=== PATIENT | female | born 1960 | race Hispanic/Latino ===

== ENCOUNTER → 2017-11-18 | Outpatient (CLI) | payer OTHER | END | disposition home or self-care (01) | LOC: RAH 09:33 | PROVIDERS: ATTEND Family Medicine | DX: Z12.31 Encounter for screening mammogram for malignant neoplasm of breast (principal) | CPT/HCPCS: 77067 ==

== ENCOUNTER → 2020-11-07 | Outpatient (CLI) | payer BC, OTHER | END | disposition home or self-care (01) | LOC: RAH 15:32 | PROVIDERS: ATTEND Family Medicine | DX: Z12.31 Encounter for screening mammogram for malignant neoplasm of breast (principal) | CPT/HCPCS: 77067 ==

== ENCOUNTER 2021-04-02 07:28 | Emergency (ER) | payer BC ==
[~2021-04-02] VITALS: Ht 154.9 cm; Wt 63.5 kg
[2021-04-02 07:32] VITALS: BP 181/84
[2021-04-02] MEDS ORDERED: TRAMADOL HCL 50 MG TABLET PO SCH (08:00)
[2021-04-02] MEDS ORDERED: TRAMADOL HCL 50 MG TABLET ONE (08:02)
[2021-04-02] MEDS ORDERED: PRED20TA3 PO (08:03)
[2021-04-02] MEDS ORDERED: IBUP-2077 PO (08:03)
[2021-04-02] MEDS ORDERED: CYCL10TA16 PO (08:03)
== END 2021-04-02 08:11 | disposition home or self-care (01) ==
LOC: EDH 07:28
DX: M54.41 Lumbago with sciatica, right side (principal); Z79.52 Long term (current) use of systemic steroids; Z79.1 Long term (current) use of non-steroidal anti-inflammatories (NSAID)

== ENCOUNTER → 2021-11-07 | Outpatient (CLI) | payer BC ==
[~2021-11-07] MED LIST: CYCL10TA16 PO; IBUP-2077 PO; PRED20TA3 PO
== END | disposition home or self-care (01) ==
LOC: RAH 08:44
PROVIDERS: ATTEND Family Medicine
DX: Z12.31 Encounter for screening mammogram for malignant neoplasm of breast (principal)
CPT/HCPCS: 77067

== ENCOUNTER → 2022-10-30 | Outpatient (CLI) | payer BC, OTHER | END | disposition home or self-care (01) | LOC: RAH 07:38 | PROVIDERS: ATTEND Family Medicine | DX: N64.4 Mastodynia (principal) | CPT/HCPCS: 77066 ==

== ENCOUNTER → 2023-11-02 | Outpatient (CLI) | payer BC | END | disposition home or self-care (01) | LOC: RAH 08:22 | PROVIDERS: ATTEND Nurse Practitioner Family | DX: Z12.31 Encounter for screening mammogram for malignant neoplasm of breast (principal); R92.343 Mammographic extreme density, bilateral breasts | CPT/HCPCS: 77067 ==

== ENCOUNTER 2024-05-15 14:28 | Emergency (ER) | payer BC ==
[~2024-05-15] VITALS: Ht 154.9 cm; Wt 67.1 kg
[2024-05-15] MEDS: ketOROlac 15MG/ML VIAL (15MG/ML) IM STA (15:45)
[2024-05-15] MEDS: acetaMINOPHEN 500 MG TABLET PO STA (15:45)
--- NOTE | 2024-05-15 17:40 | HMCIMG ---
SHOULDER COMP 2+VWS RT CLINICAL HISTORY: RIB PAIN COMPARISON: None TECHNIQUE: 2 images were obtained. FINDINGS: No obvious fracture or dislocation. No joint effusion. The soft tissues appear unremarkable. No radiopaque foreign bodies. IMPRESSION: No acute findings.
--- NOTE | 2024-05-15 18:11 | ERN ---
ED Note History of Present Illness Stated Complaint: RT ARM PAIN Chief Complaint: Upper Extremity Pain/Injury Time Seen by MD: 14:39 Time Seen by Midlevel: 14:44 Dictation: 63-year-old female coming in complaining of right upper extremity pain and right rib pain. Denies any trauma, however states yesterday she was helping a family member move some a water bottle creates the pain began shortly after that. Patient states she has a history of osteoporosis. No other complaints at this time. Denies any shortness a breath, chest pain, nausea, vomiting no diarrhea. Allergies: Coded Allergies: No Known Drug Allergies (Unverified Allergy, 05/06/13) Home Meds Active Scripts Ibuprofen (Ibuprofen 800 mg Tab) 800 Mg Tab, 800 MG PO Q6H PRN for PAIN LEVEL 5 TO 10 for 7 Days, #30 TAB Prov:SHYANN MCNEAL MD 04/02/21 Prednisone (Prednisone) 20 Mg Tablet, 2 TAB PO AD for 5 Days, #14 TAB 0 Refills TAKE 1 TAB BY MOUTH THREE TIMES PER DAY X3 DAYS, THEN TAKE 1 TAB BY MOUTH TWICE A DAY X2 DAYS, THEN TAKE 1 TAB BY MOUTH ONCE A DAY X1 DAY. Prov:SHYANN MCNEAL MD 04/02/21 Cyclobenzaprine HCl (Flexeril) 10 Mg Tab, 10 MG PO TID PRN for PAIN LEVEL 1 TO 5 for 5 Days, #15 TAB Prov:SHYANN MCNEAL MD 04/02/21 Past Medical History Past Medical History: Hypertension Additional Past Medical Hx: OSTEOPOROSIS Surgical History: Other Surgical History Other: KNEE SURGERY, HERNIA REPAIR Social History: Other Review of System Dictation Constitutional: Negative for fever,chills, and weight loss Eyes: Negative for injury, pain,redness, and discharge ENT: Negative for injury,pain or swelling Cardiovascular: Negative for chest pain, palpitations, and edema Respiratory: Negative for shortness of breath, cough, and wheezing, Abdomen/GI: Negative for abdominal pain, nausea, vomiting, diarrhea, and constipation Back: Negative for injury and pain : Negative for injury, bleeding and discharge MS/Extremity: Negative for injury and deformity complaining of right upper shoulder pain Skin: Negative for rash, and discoloration Neuro: Negative for headache, weakness, numbness, tingling, and seizure Psych: Negative for suicide ideation, homicidal ideation, and hallucinations Review of Systems: was completed Initial Vital Sign VS Vital Signs Date Time Temp Pulse Resp B/P (MAP) Pulse Ox O2 Delivery O2 Flow Rate FiO2 05/15/24 14:29 98.1 80 14 163/93 96 Room Air 0 05/15/24 16:56 21 Physical Exam Dictation General: awake, alert, NAD Head/Face: Normocephalic, atraumatic Eyes: PERRL, EOMI, vision at baseline ENT: oral cavity clear, TMs clear, no signs of infection Neck: Trachea midline, supple, no nuchal rigidity Cardiovascular: RRR, normal S1/S2, No MRGs, no JVD Respiratory: CTAB, no respiratory distress, No rales or wheezes Abdomen: Soft, non-tender, non-distended, normal bowel sounds, no guarding or rebound. Skin: Warm, dry, normal turgor, no rash MS/Extremity: Pulses equal, no cyanosis, neurovascular intact, FROM right shoulder pain right rib pain Neuro: COAx4, GCS 15, strength 5/5, CN 2-12 intact, normal cerebellar exam, normal gait, Psych: Normal behavior, mood, and affect normal Results (Laboratory/Radiology) Laboratory/Radiology Laboratory Tests Test 05/15/24 17:04 Troponin I High Sensitivity < 4 ng/L (4-50) L EKG Comment: Date:1200 Time:1700 Ventricular rate:66 MO interval:154 QRS duration:-16 QT/QTc:420/440 EKG interpretation: Sinus rhythm, in for your infarct, old. Probable anteroseptal infarct, old Reviewed by ED Attending and no STEMI interpreted by ER MD X-RAY Comment: [address] [address] IMAGING REPORT Signed PATIENT: SHAYY KITCHEN MR#: [id number] : 1960 SEX: F AGE: 63 LOCATION: [facility] ORDER 1540 STATUS: REG ER [facility] REPORT#: [id number] SERVICE [id number] REASON: RIB PAIN ORDERING PHYSICIAN: HERO JACOBS NP PROCEDURE: SHOL 2V RT - SHOULDER COMP 2+VWS RT SHOULDER COMP 2+VWS RT CLINICAL HISTORY: RIB PAIN COMPARISON: None TECHNIQUE: 2 images were obtained. FINDINGS: No obvious fracture or dislocation. No joint effusion. The soft tissues appear unremarkable. No radiopaque foreign bodies. IMPRESSION: No acute findings. DICTATED BY: NURYS CHARLES DO DATE: 05/15/24 1733 ELECTRONICALLY SIGNED BY: NURYS CHARLES DO DATE: 05/15/24 1740 ED Course ED Course Orders Procedure Category Date Status Time Ketorolac PHA 05/15/24 Complete Tromethamine 15mg/Ml 15:37 Acetaminophen 500mg PHA 05/15/24 Complete Tab (Tylenol 500mg T 15:37 Ribs Unilat 2v Rt RAD 05/15/24 Taken 15:39 Shoulder Comp 2+Vws Rt RAD 05/15/24 Resulted 15:39 12 Lead Ekg Tracing- EKG 05/15/24 Complete Technical 16:52 Troponin I High LAB 05/15/24 Complete Sensitivity 16:52 Chest 1vw RAD 05/15/24 Taken 16:52 Current Medications Medications (Trade) Dose Ordered Sig/Latia Route PRN Reason Start Time Stop Time Status Last Admin Dose Admin Acetaminophen (TYLenol 500MG TAB) 500 mg ONCE STAT PO 05/15/24 15:37 05/15/24 15:38 DC 05/15/24 15:45 Ketorolac Tromethamine (toRADol) 15 mg ONCE STAT IM 05/15/24 15:37 05/15/24 15:38 DC 05/15/24 15:45 Vital Signs Date Time Temp Pulse Resp B/P (MAP) Pulse Ox O2 Delivery O2 Flow Rate FiO2 05/15/24 18:29 98.8 69 18 157/71 98 Room Air* 0 21 05/15/24 16:56 98.8 64 20 164/73 98 Room Air* 0 21 05/15/24 14:29 98.1 80 14 163/93 96 Room Air 0 Medical Decision Making MDM MDM: 63-year-old female coming in complaining of right upper extremity pain and right rib pain. Denies any trauma, however states yesterday she was helping a family member move some a water bottle creates the pain began shortly after that. Patient states she has a history of osteoporosis. No other complaints at this time. Denies any shortness a breath, chest pain, nausea, vomiting no diarrhea. Patient's since the for him and a heart attack states that her mother date of a heart attack. Requesting imaging and EKG. EKG shows no STEMI, troponin is negative. X-ray of the right shoulder, chest, in ribs showed no acute findings, interpreted by me. After pain medication patient states she feels better. Educated patient more than like she she has a muscle strain from lifting the boxes. Educated to follow up with the PCP in 1-2 days and to take Tylenol [id number] for pain management along with the naproxen that I will prescribe. Patient verbalized understanding, answered all questions. Differential diagnosis: Shoulder dislocation, shoulder contusion, muscle strain Rationale: Tests considered and ordered secondary to shared decision making include: Previous outside records reviewed: Old ER visits. Risk of complication and/or morbidity or mortality of patient management: None Medications-Per medication reconciliation Need for hospitalization: Patient does not meet criteria for hospitalization. Need for emergency major/minor surgery: No There are no social concerns with this patient. Prescription drug management Prescriptions will include symptomatic care Patient's prior external medical records from other ER visits were reviewed by me as indicated. Prior testing and results from previous visits were reviewed. Prior tests were taken into account with medical decision making and resource utilization, independent historian/historians were used to obtain complete medical history. I independently interpreted the test that were performed, results were reviewed by me and considered findings on radiology if ordered. Medical management and examination interpretation discussions were had by me with other qualified healthcare professionals as indicated for the patient's care. DX & DISP Disposition: Transfer Departure Impression: Primary Impression: Rib pain on right side Additional Impression: Right shoulder pain Condition: Stable Scripts Naproxen (Naprosyn) 500 Mg Tablet 500 MG PO BIDPC for 3 Days, #6 TAB 0 Refills Prov: HERO JACOBS NP 05/15/24 Additional Instructions: You can add Tylenol to your pain regimen if needed alongside your naproxen. Follow up with your PCP in 1-2 days, return to the ER if symptoms worsen. Referrals: AMNA DE LEON (PCP) Time of Disposition: 18:43 I have reviewed the case, and I agree with, Diagnosis and Plan HERO JACOBS NP May 15, 2024 18:11
--- NOTE | 2024-05-15 18:28 | EKG ---
[facility] Test Date: 2024-05-15 Test Time: 17:00:36 Pat Name: SHAYY KITCHEN Department: ED Room: Gender: F Database Admin: [id number] : 1960 Requested By: HERO JACOBS Order Number: [id number] Reading MD: Mari Manning Measurements Intervals [place] Rate: 66 P: 6 CT: 154 QRS: -16 QRSD: 79 T: 29 QT: 420 QTc: 440 Interpretive Statements Sinus rhythm Inferior infarct, old Probable anteroseptal infarct, old No previous ECG available for comparison Electronically Signed On 05-16-2024 01:25:56 HISTORICAL ARCHEOLOGIST by Mari Manning Please click the below link to view image of tracing.
[2024-05-15 18:29] VITALS: BP 157/71; PULSE 69; RESP 18; TEMP 98.8; O2SAT 98
[2024-05-15] MEDS ORDERED: NAPR-1180 PO (18:43)
--- NOTE | 2024-05-15 19:29 | HMCIMG ---
CHEST 1VW CLINICAL HISTORY: CARDIAC COMPARISON: None TECHNIQUE: Single view of the chest was obtained. FINDINGS: Lungs are clear. The cardiac size and mediastinum are unremarkable. The bony structures are within normal limits. IMPRESSION: No acute cardiopulmonary process identified.
--- NOTE | 2024-05-15 19:52 | HMCIMG ---
RIBS UNILAT 2V RT CLINICAL HISTORY: RIB PAIN COMPARISON: None TECHNIQUE: 4 images were obtained. FINDINGS: The right lung is clear. There is no identified pneumothorax. The right ribs shoulder and clavicle as well as visualized portion of the spine appear intact IMPRESSION: There are no acute findings
== END 2024-05-15 19:05 | disposition home or self-care (01) ==
LOC: EDH 14:28
DX: M25.511 Pain in right shoulder (principal); R07.81 Pleurodynia; I10 Essential (primary) hypertension; Z98.890 Other specified postprocedural states
CPT/HCPCS: 99284; 71045; 84484; 71100; 73030; 96372; 93005; J1885

== ENCOUNTER 2024-12-21 14:16 | Emergency (ER) | payer BC ==
[~2024-12-21] VITALS: Ht 154.9 cm; Wt 67.6 kg
[~2024-12-21 14:16] MED LIST changes: +NAPR-1180 PO
[2024-12-21 15:09] VITALS: BP 157/77; PULSE 66; RESP 20; TEMP 97.9; O2SAT 99
[2024-12-21] MEDS: ORPHENADRINE 60MG/2ML IM ONE (15:18)
[2024-12-21] MEDS ORDERED: NAPR-1194 PO (15:50)
[2024-12-21] MEDS ORDERED: METH-662 PO (15:50)
--- NOTE | 2024-12-21 15:50 | ERN ---
General Chief Complaint: Low Back Pain/Injury Stated Complaint: LOWER BACK PAIN RADIATING DOWN LEG Time Seen by MD: 14:16 Source: patient History of Present Illness Initial Comments PATIENT IS A 64-YEAR-OLD FEMALE COMING IN COMPLAINING OF RIGHT LOWER LEG PAIN. PER PATIENT SHE WAS CARRYING AN OBJECT COUPLE OF DAYS AGO STARTED HAVING THE PAIN SHE DOES NOT HAS A RIGHT GLUTEAL REGION DOWN HER LEG. HE IS ABLE TO AMBULATE WITH SOME DISCOMFORT. Allergies: Coded Allergies: No Known Drug Allergies (Unverified Allergy, 05/06/13) Home Meds Active Scripts Naproxen (Naprosyn) 500 Mg Tablet, 500 MG PO BIDPC for 3 Days, #6 TAB 0 Refills Prov:HERO JACOBS NP 05/15/24 Ibuprofen (Ibuprofen 800 mg Tab) 800 Mg Tab, 800 MG PO Q6H PRN for PAIN LEVEL 5 TO 10 for 7 Days, #30 TAB Prov:SHYANN MCNEAL MD 04/02/21 Prednisone (Prednisone) 20 Mg Tablet, 2 TAB PO AD for 5 Days, #14 TAB 0 Refills TAKE 1 TAB BY MOUTH THREE TIMES PER DAY X3 DAYS, THEN TAKE 1 TAB BY MOUTH TWICE A DAY X2 DAYS, THEN TAKE 1 TAB BY MOUTH ONCE A DAY X1 DAY. Prov:SHYANN MCNEAL MD 04/02/21 Cyclobenzaprine HCl (Flexeril) 10 Mg Tab, 10 MG PO TID PRN for PAIN LEVEL 1 TO 5 for 5 Days, #15 TAB Prov:SHYANN MCNEAL MD 04/02/21 Past Medical History Past Medical History: Hypertension Medical History Other: OSTEOPOROSIS Past Surgical History: Other Surgical History Other: KNEE SURGERY, HERNIA REPAIR Social History Social History: Other ROS Dictation CONSTITUTIONAL: NO CHILLS, NO FEVER, NO WEAKNESS, NO DIAPHORESIS, NO MALAISE. HEAD/FACE: NO SIGNS OF TRAUMA. EENT: NO EYE PAIN, NO BLURRED VISION, NO TEARING, NO DOUBLE VISION, NO EAR PAIN, NO EAR DISCHARGE, NO NOSE PAIN, NO NASAL CONGESTION, NO THROAT PAIN, NO THROAT SWELLING, NO MOUTH PAIN. RESPIRATORY: NO COUGH, NO ORTHOPNEA, NO SOB, NO STRIDOR, NO WHEEZING. CARDIOVASCULAR: NO CHEST PAIN, NO EDEMA, NO PALPITATIONS, NO SYNCOPE. GASTROINTESTINAL/ABDOMINAL: NO ABDOMINAL PAIN, NO CONSTIPATION, NO DIARRHEA, NO NAUSEA, NO VOMITING. GENITOURINARY: NO ABNORMAL DISCHARGE, NO DYSURIA, NO FREQUENT URINATION, NO HEMATURIA. NO COMPLAINTS OF PAIN IN THE GENITALS. MUSCULOSKELETAL: NO BACK PAIN, NO GOUT, NO JOINT PAIN, NO JOINT SWELLING,MUSCLE PAIN, MUSCLE STIFFNESS, NO NECK PAIN. INTEGUMENTARY: NO CHANGE IN COLOR, NO CHANGE IN HAIR/NAILS, NO DRYNESS, NO LESION, NO LUMPS, NO RASH. NEUROLOGICAL/PSYCH: NO ANXIETY, NOT DEPRESSED, NO EMOTIONAL PROBLEM, NO HEADACHE, NO NUMBNESS, NO PRE-EXISTING DEFICIT, NO HISTORY OF SEIZURES, NO TREMORS, NO WEAKNESS. HEMATOLOGIC/LYMPHATIC: NOT ANEMIC, NO HISTORY OF BLOOD CLOTS, NO APPARENT BLEEDING, NO BRUISING, GLANDS NOT SWOLLEN. ALL SYSTEMS NEGATIVE, EXCEPT NOTED. Physical Exam Physical Exam Dictation VITAL SIGNS: REVIEWED. GENERAL APPEARANCE: ALERT, ORIENTED X3, NO ACUTE DISTRESS, OBESE. HEAD AND FACE: NON-TRAUMATIC. EYES: PERRL, PINK CONJUNCTIVAS, EYELID NO TRAUMA, ANTERIOR CHAMBER CLEAR. EARS: PINNAS INTACT AND NO SIGNS OF TRAUMA OR ERYTHEMA. EAR CANALS CLEAR AND NO DISCHARGE. TMS NO ERYTHEMA. NOSE: NO DISCHARGE, NO BLEEDING. OROPHARYNX: MOUTH NORMAL, TEETH NO CARIES, TONGUE PINK. PHARYNX CLEAR, NO ERYTHEMA. TONSILS NO EXUDATES, NO ABSCESSES NOTED. MUCOUS MEMBRANE MOIST. NECK: SUPPLE, NON-TENDER, NO THYROMEGALY, NO MASSES, NO JVD, NO BRUITS. BREAST: DEFERRED. CHEST: NO TENDERNESS, NO CREPITUS, NO PARADOXICAL MOVEMENT, NO RETRACTIONS. LUNGS: CLEAR, WELL-VENTILATED, SYMMETRIC, NO RALES, NO WHEEZING, NO RHONCHI, NO STRIDOR, GOOD BREATH SOUNDS BILATERALLY. HEART: REGULAR RATE, REGULAR RHYTHM, NO MURMUR, NO GALLOPS. VASCULAR: NO PERIPHERAL EDEMA. ABDOMEN: SOFT, POSITIVE BOWEL SOUNDS, NONDISTENDED, NO GUARDING, NONTENDER, NO REBOUND, NO MASSES NO HEPATOMEGALY, NO SPLENOMEGALY, NO FRANKS'S SIGN, NO HERNIAS. RECTAL: DEFERRED. GENITAL: DEFERRED. NEUROLOGICAL: NORMAL SPEECH, GROSS MOTOR FUNCTION INTACT, GROSS SENSORY FUNCTION INTACT. MUSCULOSKELETAL: NECK NONTENDER, FULL RANGE OF MOTION, BACK NONTENDER, FULL RANGE OF MOTION. EXTREMITIES: NONTENDER, FULL RANGE OF MOTION. RIGHT GLUTEAL REGION TENDERNESS RATE DOWN THE RIGHT HAMSTRING AREA SKIN: COLOR PINK, DRY, NO TURGOR, NO RASH, NO LACERATIONS, NO ABRASIONS, NO CONTUSIONS. LYMPHATICS: DEFERRED. MDM MDM: DIFFERENTIAL DIAGNOSIS: RIGHT-SIDED SCIATICA, MUSCLE STRAIN, RATIONALE: TESTS CONSIDERED AND ORDERED SECONDARY TO SHARED DECISION MAKING INCLUDE: PREVIOUS OUTSIDE RECORDS REVIEWED: OLD ER VISITS. RISK OF COMPLICATION AND/OR MORBIDITY OR MORTALITY OF PATIENT MANAGEMENT: NONE MEDICATIONS-PER MEDICATION RECONCILIATION NEED FOR HOSPITALIZATION: PATIENT DOES NOT MEET CRITERIA FOR HOSPITALIZATION. PATIENT IS A 64-YEAR-OLD FEMALE COMING IN COMPLAINING OF RIGHT LOWER EXTREMITY PAIN RADIATING TO THE GLUTEAL REGION. ON PHYSICAL EXAM THAT HAS TENDERNESS IN THE GLUTEAL REGION. PATIENT WILL BE DISCHARGED WITH A DIAGNOSIS OF RIGHT-SIDED SCIATICA. WOULD TREAT HER CONSERVATIVELY WITH THE ANTISPASMODICS AND ANTI-INFLAMMATORIES. I DID ADVISED HER APPROPRIATE FOLLOW UP WITH PCP FOR ONGOING EVALUATION AND MANAGEMENT. ED Course Orders Procedure Category Date Status Time Orphenadrine Citrate PHA 12/21/24 Complete (Norflex) 15:00 Ketorolac PHA 12/21/24 Complete Tromethamine 30mg/Ml 15:00 Current Medications Medications (Trade) Dose Ordered Sig/Latia Route PRN Reason Start Time Stop Time Status Last Admin Dose Admin Ketorolac Tromethamine (toRADol) 30 mg ONCE ONCE IM 12/21/24 15:00 12/21/24 15:01 DC 12/21/24 15:18 Orphenadrine Citrate (Norflex) 60 mg ONCE ONCE IM 12/21/24 15:00 12/21/24 15:01 DC 12/21/24 15:18 Vital Signs Date Time Temp Pulse Resp B/P (MAP) Pulse Ox O2 Delivery O2 Flow Rate FiO2 12/21/24 15:09 97.9 66 20 157/77 99 Room Air* 0 21 12/21/24 14:29 97.9 66 20 157/77 99 Room Air DX & DISP Disposition: Discharge Departure Impression: Primary Impression: Sciatic leg pain Condition: Stable Scripts Naproxen (Naproxen) 500 Mg Tablet 1 TAB PO BID for pain for 7 Days, #14 TAB 0 Refills Prov: CELSO JONES MD 12/21/24 Methocarbamol (Robaxin) 750 Mg Tab 1 TAB PO BID for 7 Days, #14 TAB 0 Refills Prov: CELSO JONES MD 12/21/24 Additional Instructions: FOLLOW-UP WITH PRIMARY CARE PROVIDER IN 1 TO 2 DAYS. TAKE MEDICATIONS DIRECTED HERE IN THE EMERGENCY ROOM. OKAY TO CONTINUE HOME MEDICATIONS UNLESS OTHERWISE DISCUSSED DURING YOUR VISIT IN THE EMERGENCY ROOM TODAY. RETURN TO YOUR NEAREST EMERGENCY ROOM IF SYMPTOMS WORSEN OR IF THERE IS NO IMPROVEMENT. CALL 911 IF YOU NEED IMMEDIATE ASSISTANCE. TAKE TYLENOL [id number] NEEDED AND IF NO CONTRAINDICATIONS ARE PRESENT. INCREASE ORAL HYDRATION. A WOUND CULTURE OR URINE CULTURE WAS ORDERED HERE IN THE EMERGENCY ROOM DEPARTMENT PLEASE FOLLOW-UP WITH PRIMARY CARE PROVIDER AND ADVISE THEM TO GET REPORTS FROM OUR FACILITY. IF YOU HAD ANY DAVINA WRAP/SPLINTS THAT WERE APPLIED HERE, PLEASE DO NOT REMOVE THEM UNTIL YOU SEE YOUR PRIMARY CARE OR SPECIALTY. REFERRALS: Referrals: AMNA DE LEON (PCP) Time of Disposition: 15:49 CELSO JONES MD Dec 21, 2024 15:50
== END 2024-12-21 16:00 | disposition home or self-care (01) ==
LOC: EDH 14:16
DX: M54.31 Sciatica, right side (principal); I10 Essential (primary) hypertension; Z98.890 Other specified postprocedural states; Z79.899 Other long term (current) drug therapy
CPT/HCPCS: 99284; 96372 ×2; J1885; J2360

== ENCOUNTER → 2025-04-05 | Outpatient (CLI) | payer BC ==
[~2025-04-05] MED LIST changes: +METH-662 PO; +NAPR-1194 PO
== END | disposition home or self-care (01) ==
LOC: RAH 08:27
PROVIDERS: ATTEND Nurse Practitioner Family
DX: Z12.31 Encounter for screening mammogram for malignant neoplasm of breast (principal)
CPT/HCPCS: 77067

== ENCOUNTER → 2025-05-01 | Outpatient (CLI) | payer BC ==
--- NOTE | 2025-05-03 13:42 | HMCIMG ---
BILATERAL BREAST ULTRASOUND: CLINICAL HISTORY: Follow-up for dense breasts Finding: Real-time examination of the both breasts demonstrates heterogeneous echotexture throughout both the breasts without evidence of focal solid or cystic masses. There is benign-appearing bilateral axillary lymph node on the right the largest measuring 1.0 x 0.6 cm. The largest on the left measures 1.3 x 0.8 cm. IMPRESSION: Dense breast with no solid or cystic masses seen. I would recommend annual mammography with tomography with bilateral breast sonogram. FINAL ASSESSMENT: ACR: BI-RAD- 2. Benign Finding.
== END | disposition home or self-care (01) ==
LOC: RAH 11:13
PROVIDERS: ATTEND Nurse Practitioner Family
DX: R92.333 Mammographic heterogeneous density, bilateral breasts (principal); R59.0 Localized enlarged lymph nodes